=== PATIENT | female | born 1945 | race Caucasian/White ===

== ENCOUNTER 2017-06-02 14:52 | Emergency (ER) | payer MEDICARE, MEDICAID ==
--- NOTE | 2017-06-02 15:12 | ER Document Report ---
ED Respiratory Problem - General Chief Complaint: Cough Stated Complaint: COUGH Time Seen by Provider: 06/02/17 14:58 Information source: Patient Notes: 71-year-old female with past medical history as recorded including dementia who presents today from the [facility] for the cough for 2 weeks. Patient just completed a course of antibiotics. Patient supposedly has had no runny nose, congestion, fever, vomiting, abdominal pain, chest pain, or diarrhea. Patient has a history of myocardial infarction with one stent. No history of congestive heart failure. Patient and family member denies any calf pain or leg swelling. - HPI Patient complains to provider of: Cough Onset: Other - See above Duration: Intermittent episodes Initiating Event: Other - See above Quality of pain: No pain Severity: Mild Pain Level: Denies Context: Other - See above Short of Breath: Mild Cough: Nonproductive Sputum amount: None Associated symptoms: Other - See above Similar symptoms previously: Yes Recently seen / treated by doctor: Yes - Related Data Allergies/Adverse Reactions: No Known Allergies Allergy (Unverified 06/02/17 15:50) Past Medical History - General Information source: Patient - Social History Smoking Status: Unknown if Ever Smoked Cigarette use (# per day): No Chew tobacco use (# tins/day): No Smoking Education Provided: No Frequency of alcohol use: None Family History: Reviewed & Not Pertinent Review of Systems - Review of Systems Constitutional: denies: Fever EENT: denies: Eye discharge, Nose discharge Cardiovascular: denies: Chest pain, Palpitations Respiratory: denies: Hemoptysis Gastrointestinal: denies: Vomiting Genitourinary: denies: Dysuria Musculoskeletal: denies: Leg swelling Skin: Other - no hives. denies: Rash Neurological/Psychological: Other - no slurred speech -: Yes All other systems reviewed and negative Physical Exam - Vital signs Vitals: Temp Pulse BP 97.8 F 84 118/56 L 06/02/17 14:59 06/02/17 14:59 06/02/17 14:59 Interpretation: Normal Notes: Reviewed vital signs and nursing note as charted by RN. CONSTITUTIONAL: Alert and oriented and responds appropriately to questions. Well -appearing; well-nourished HEAD: Normocephalic; atraumatic EYES: PERRL; Conjunctivae clear, sclerae non-icteric ENT: Normal nose; no rhinorrhea; moist mucous membranes; pharynx without lesions noted NECK: Supple without meningismus; non-tender; no cervical lymphadenopathy, no masses CARD: Regular rate and rhythm; no murmurs, no clicks, no rubs, no gallops; symmetric distal pulses RESP: Normal chest excursion without splinting or tachypnea; breath sounds clear and equal bilaterally; rhonchi heard most prominently to the right lower lung field ABD/GI: Normal bowel sounds; non-distended; soft, non-tender BACK: The back appears normal and is non-tender to palpation, there is no CVA tenderness EXT: Normal ROM in all joints; non-tender to palpation; no cyanosis, no effusions, no edema SKIN: Normal color for age and race; warm; dry; good turgor; capillary refill < 2 seconds; no acute lesions noted NEURO: Moves all extremities equally; Motor and sensory function intact PSYCH: The patient's mood and manner are appropriate. Grooming and personal hygiene are appropriate. - Notes Notes: Reviewed vital signs and nursing note as charted by RN. CONSTITUTIONAL: Alert, polite, disoriented at baseline, in no acute distress. Well-appearing; well-nourished HEAD: Normocephalic; atraumatic EYES: PERRL; Conjunctivae clear, sclerae non-icteric CARD: Regular rate and rhythm; no murmurs, no clicks, no rubs, no gallops; symmetric distal pulses RESP: Normal chest excursion without splinting or tachypnea; breath sounds clear and equal bilaterally; obvious wheezing or rales. Scattered rhonchi bilateral ABD/GI: Normal bowel sounds; non-distended; soft, non-tender BACK: The back appears normal and is non-tender to palpation, there is no CVA tenderness EXT: Normal ROM in all joints; non-tender to palpation; no edema SKIN: Normal color for age and race; warm; dry; good turgor; capillary refill < 2 seconds; no acute lesions noted NEURO: Moves all extremities equally; Motor and sensory function intact PSYCH: The patient's mood and manner are appropriate. Grooming and personal hygiene are appropriate. Course - Re-evaluation Re-evalutation: 06/02/17 15:12 Given the history and physical, patient's age, I will obtain basic labs, troponin, EKG, BNP, and an x-ray of the chest. I would like to evaluate for possible resistant pneumonia, congestive heart failure, or other intrathoracic process. I believe PE or aortic dissection to be unlikely. 06/02/17 15:36 EKG shows a heart rate of 89, normal sinus rhythm, left anterior fascicular block, no obvious ST elevation or depression 06/02/17 15:43 X-ray of the chest shows what appears to be a right lower lobe pneumonia. I have researched the patient's transfer summary paperwork and it appears the patient just completed a course of Levaquin. Labs are currently pending. I would discuss the patient's admission with the hospitalist given failed outpatient management. 06/02/17 16:33 Pt will be admitted to the hospitalist service. Hospitalist requested Cefipime and levoquin. - Vital Signs Vital signs: Temp Pulse Resp BP Pulse Ox 97.8 F 84 18 118/56 L 95 06/02/17 14:59 06/02/17 14:59 06/02/17 15:15 06/02/17 14:59 06/02/17 15:15 - Laboratory Result Diagrams: 06/02/17 15:44 06/02/17 15:44 Laboratory results interpreted by me: 06/02/17 06/02/17 15:44 15:44 Hgb 11.7 L Hct 35.4 L RDW 14.2 H Plt Count 495 H Carbon Dioxide 32 H BUN 22 H Glucose 118 H Discharge - Discharge Clinical Impression: Bacterial pneumonia Condition: Fair Disposition: ADMITTED INPATIENT Admitting Provider: Hospitalist Unit Admitted: [facility]
--- NOTE | 2017-06-02 15:33 | RADIOLOGY REPORT (SQ) ---
EXAM DESCRIPTION: CHEST PA/LAT COMPLETED DATE/TIME: 06/02/2017 3:24 pm REASON FOR STUDY: 13Hw; cough COMPARISON: None. EXAM PARAMETERS: NUMBER OF VIEWS: two views TECHNIQUE: Digital Frontal and Lateral radiographic views of the chest acquired. RADIATION DOSE: NA LIMITATIONS: none FINDINGS: LUNGS AND PLEURA: Dense opacification is present in the right lower lobe. MEDIASTINUM AND HILAR STRUCTURES: No masses or contour abnormalities. HEART AND VASCULAR STRUCTURES: Heart normal size. No evidence for failure. BONES: No acute findings. HARDWARE: None in the chest. OTHER: No other significant finding. IMPRESSION: Right lower lobe pneumonia. TECHNICAL DOCUMENTATION: JOB ID: [id number] [employer]- All Rights Reserved
[2017-06-02 15:59] LABS: HEMATOCRIT 35.4 % (36.0-47.0); HEMOGLOBIN 11.7 g/dL (12.0-15.5); HGB HCT DIFFERENCE -0.3; MEAN CORPUSCULAR HEMOGLOBIN 31.2 pg (27.0-33.4); MEAN CORPUSCULAR VOLUME 95 fl (80-97); RED BLOOD COUNT 3.75 10^6/uL (3.72-5.28); RED CELL DISTRIBUTION WIDTH 14.2 % (11.5-14.0); WHITE BLOOD COUNT 9.4 10^3/uL (4.0-10.5)
[2017-06-02 16:16] LABS: ANION GAP 8 (5-19); BLOOD UREA NITROGEN 22 mg/dL (7-20); CALCIUM 8.5 mg/dL (8.4-10.2); CARBON DIOXIDE 32 mmol/L (22-30); CHLORIDE 99 mmol/L (98-107); CREATININE RESULT 0.64 mg/dL (0.52-1.25); GLUCOSE 118 mg/dL (75-110); POTASSIUM 4.2 mmol/L (3.6-5.0); SODIUM 139.1 mmol/L (137-145)
[2017-06-02 16:27] LABS: BAND NEUTROPHILS % (MANUAL) 3 % (3-5); BASOPHILS % (MANUAL) 0 % (0-2); EOSINOPHILS % (MANUAL) 2 % (0-6); LYMPHOCYTES % (MANUAL) 16 % (13-45); TOTAL CELLS COUNTED 100
[2017-06-02 16:29] LABS: ANISOCYTOSIS SLIGHT; OVALOCYTES SLIGHT; POIKILOCYTOSIS SLIGHT; POLYCHROMASIA SLIGHT; TARGET CELLS SLIGHT
[2017-06-02] MEDS ORDERED: CEFEPIME 2 GM/D5W RTU 50 ML IV ONE (16:31)
[2017-06-02] MEDS ORDERED: LEVOFLOXACIN 750 MG/D5W RTU 150 ML IV ONE (16:32)
[2017-06-02 16:34] LABS: TROPONIN I < 0.012 ng/mL
--- NOTE | 2017-06-02 17:27 | PDOC CONSULTATION ---
Consultation Consult Date: 06/02/17 Consult reason:: Pneumonia History of Present Illness Admission Date/PCP: JIM CRUZ Patient complains of: Cough History of Present Illness: ISHA SNYDER is a 71 year old female with past medical history of dementia that is transferred from [facility] for 2 weeks of persistent cough. Patient was treated with Levaquin from 05/27/2017 to 2016. She has no reported fever. I cannot get reliable history from patient secondary to advanced dementia. Her sister is present at the bedside and able to give good history. She also states the patient has had no fever or shortness of breath but just a persistent cough for 2 weeks. Past Medical History Cardiac Medical History: Reports: Hyperlipidema Psychiatric Medical History: Reports: Bipolar Disorder, Dementia Social History Lives with: Longterm Smoking Status: Unknown if Ever Smoked Frequency of Alcohol Use: None Hx Recreational Drug Use: No - Advance Directive Resuscitation Status: Do Not Resuscitate Family History Family History: Reviewed & Not Pertinent Parental Family History Reviewed: Yes Children Family History Reviewed: Yes Sibling(s) Family History Reviewed.: Yes Medication/Allergy Home Medications: Albuterol Sulfate [Ventolin 0.083% Neb 2.5 mg/3 ml Ampul] 1 vial NEB Q6HWA #60 vial 06/02/17 Aspirin [Aspirin 81 mg Chewable Tablet] 81 mg PO DAILY 06/02/17 Atorvastatin Calcium [Lipitor 10 mg Tablet] 10 mg PO QHS 06/02/17 Divalproex Sodium [Depakote ER] 500 mg PO QHS 06/02/17 Fexofenadine HCl [Tina Allergy] 60 mg PO DAILY 06/02/17 Fluticasone Propionate [Flonase Nasal [place] 50 Mcg/[place] 16 gm] 2 sprays NASL Q12 06/02/17 Guaifenesin [Mucinex] 600 mg PO BID #20 tab.er.12h 06/02/17 Levofloxacin [Levaquin 500 mg Tablet] 500 mg PO DAILY #7 tablet 06/02/17 Memantine HCl [Namenda 10 mg Tablet] 10 mg PO Q12 06/02/17 Mirtazapine 7.5 mg PO Q12 06/02/17 Multivit-Min/FA/Lycopene/Lut [Certavite Sr-Antioxidant Tab] 1 tab PO DAILY 06/02 Quetiapine Fumarate [Seroquel 25 mg Tablet] 25 mg PO QHS 06/02/17 Allergies/Adverse Reactions: No Known Allergies Allergy (Unverified 06/02/17 15:50) Review of Systems ROS unobtainable: Due to mental status Physical Exam Vital Signs: Temp Pulse Resp BP Pulse Ox 97.8 F 84 18 118/56 L 95 06/02/17 14:59 06/02/17 14:59 06/02/17 15:15 06/02/17 14:59 06/02/17 15:15 Intake & Output 06/01/17 06/02/17 06/03/17 06:59 06:59 06:59 Weight 59 kg PHYSICAL EXAM: GENERAL: Appears well, no acute distress HEENT: Normocephalic, no scleral icterus, conjunctiva clear, EOEM intact, PERRLA , moist mucous membranes NECK: trachea midline, no thyromegally RESPIRATORY: Faint wheezes in both anterior lung badillo, good air excursion, normal respiratory rate, no intercostal retraction CARDIAC: Regular rate and rhythm, no murmur/cristiano/rub ABDOMEN: Soft, no distension, no tenderness, no guarding, normal bowel sounds, negative Myers sign RECTAL: deferred : deferred EXTREMITIES: No edema, cyanosis, clubbing MUSCULOSKELETAL: No joint swelling or deformity VASCULAR: normal peripheral pulses NEUROLOGIC: Alert, disoriented, normal speech, cranial nerves grossly intact, 5/ 5 strength in all extremities, tactile sensation intact in all extremities SKIN: No rash, no wounds, no worrisome skin lesions Results Laboratory Results: 06/02/17 15:44 06/02/17 15:44 06/02/17 06/02/17 15:44 15:44 WBC 9.4 RBC 3.75 Hgb 11.7 L Hct 35.4 L MCV 95 MCH 31.2 MCHC 33.0 RDW 14.2 H Plt Count 495 H Seg Neutrophils % Not Reportable Lymphocytes % Not Reportable Monocytes % Not Reportable Eosinophils % Not Reportable Basophils % Not Reportable Absolute Neutrophils Not Reportable Absolute Lymphocytes Not Reportable Absolute Monocytes Not Reportable Absolute Eosinophils Not Reportable Absolute Basophils Not Reportable Sodium 139.1 Potassium 4.2 Chloride 99 Carbon Dioxide 32 H Anion Gap 8 BUN 22 H Creatinine 0.64 Est GFR ( Amer) > 60 Est GFR (Non-Af Amer) > 60 Glucose 118 H Calcium 8.5 06/02/17 15:44 Troponin I < 0.012 NT-Pro-B Natriuret Pep 236 Impressions: Chest X-Ray 06/02/17 15:05 IMPRESSION: Right lower lobe pneumonia. Assessment & Plan - Diagnosis (1) Right lower lobe pneumonia Is this a current diagnosis for this admission?: YesPlan: Patient has been on Levaquin from 05/27/2017 at 09/11/2017. She is afebrile and has a normal white blood count on this medication. She has residual cough as a result of pneumonia. I do not think she has failed Levaquin but I will extend the course for 7 more days. Order Mucinex and albuterol nebulizer treatments for symptomatic relief. Patient will need follow-up chest x-ray in 3-4 weeks. (2) Dementia Is this a current diagnosis for this admission?: YesPlan: Return to [facility]term facility for supportive care. (3) Reactive airway disease Is this a current diagnosis for this admission?: YesPlan: Albuterol nebulizer treatments every 6 hours while awake for the next 7 days. - Time Time Spent: Greater than 70 Minutes Anticipated discharge: SNF
[2017-06-02 19:16] VITALS: BP 119/60
--- NOTE | 2017-06-02 22:46 | EKG REPORT ---
SEVERITY:- ABNORMAL ECG - SINUS RHYTHM LEFT ANTERIOR FASCICULAR BLOCK : Confirmed by: Emil Benson 02-Jun-2017 22:46:12
== END 2017-06-02 19:09 ==
LOC: ER 14:52
DX: J15.9 Unspecified bacterial pneumonia (principal); R05 Cough; F03.90 Unspecified dementia, unspecified severity, without behavioral disturbance, psychotic disturbance, mood disturbance, and anxiety
CPT/HCPCS: 93005; 99284; 96365; 96367; 36415; 87040; 85025; 80048; 84484; 83880; 71020; 93010; J1956; J0692

== ENCOUNTER 2019-09-16 10:10 | Day surgery (SDC) | payer MEDICARE, MEDICAID ==
[2019-09-09 09:53] LABS: HEMATOCRIT 40.1 % (36.0-47.0); HEMOGLOBIN 13.3 g/dL (12.0-15.5); MEAN CORPUSCULAR HEMOGLOBIN 30.4 pg (27.0-33.4); MEAN CORPUSCULAR HGB CONC 33.1 g/dL (32.0-36.0); MEAN CORPUSCULAR VOLUME 92 fl (80-97); PLATELET COUNT 190 10^3/uL (150-450); RED BLOOD COUNT 4.37 10^6/uL (3.72-5.28); RED CELL DISTRIBUTION WIDTH 15.5 % (11.5-14.0); WHITE BLOOD COUNT 5.3 10^3/uL (4.0-10.5)
[2019-09-09 10:28] LABS: ANION GAP 6 (5-19); BLOOD UREA NITROGEN 18 mg/dL (7-20); CALCIUM 9.4 mg/dL (8.4-10.2); CARBON DIOXIDE 32 mmol/L (22-30); CHLORIDE 103 mmol/L (98-107); GLUCOSE 88 mg/dL (75-110); POTASSIUM 4.1 mmol/L (3.6-5.0)
--- NOTE | 2019-09-09 12:47 | RADIOLOGY REPORT (SQ) ---
EXAM DESCRIPTION: CHEST PA/LATERAL COMPLETED DATE/TIME: 09/09/2019 12:38 pm REASON FOR STUDY: PRE-OP COMPARISON: 06/02/2017 EXAM PARAMETERS: NUMBER OF VIEWS: two views TECHNIQUE: Digital Frontal and Lateral radiographic views of the chest acquired. RADIATION DOSE: NA LIMITATIONS: none FINDINGS: LUNGS AND PLEURA: Chronic interstitial changes. No infiltrate, effusion, or mass. MEDIASTINUM AND HILAR STRUCTURES: No masses or contour abnormalities. HEART AND VASCULAR STRUCTURES: Heart normal size. No evidence for failure. BONES: No acute findings. HARDWARE: None in the chest. OTHER: No other significant finding. IMPRESSION: Chronic lung changes with no acute cardiopulmonary finding. TECHNICAL DOCUMENTATION: JOB ID: [id number] [employer]- All Rights Reserved Reading location - IP/workstation name: [email or web address]
[~2019-09-16 10:10] MED LIST: ACETAMINOPHEN 1,000 MG/100 ML RTUPB IV PRN; CEFAZOLIN SODIUM 2 GM in DEXTROSE 5%-WATER 100 ML IV PRN; DEXAMETHASONE SOD PHOSPHATE INJ 4 MG/1 ML VIAL ONE; FENTANYL CITRATE INJ/PF 100 MCG/2 ML AMPUL ONE; IBUPROFEN 800 MG in NORMAL SALINE 250 ML IV PRN; LACTATED RINGERS 1000 ML IV PRN; LIDOCAINE 0.5% INJ-PF (5 MG/ML) 50 ML SDV SUBCUT PRN; MIDAZOLAM 2 MG/2 ML INJ ONE; ONDANSETRON HCL INJ/PF 4 MG/2 ML SDV ONE; PROPOFOL INJ 200 MG/20 ML VIAL IV ONE
[2019-09-16] MEDS ORDERED: BUPIVACAINE HCL 0.25 % INJ/PF (2.5 MG/1 ML) 30 ML VIAL ONE (10:47)
[2019-09-16] MEDS ORDERED: ACETAMINOPHEN 325 MG TABLET ONE (11:18)
[2019-09-16] MEDS ORDERED: MORPHINE SULFATE 10 MG/ML INJ IV PRN (12:39)
[2019-09-16] MEDS ORDERED: PROMETHAZINE HCL INJ 25 MG/1 ML VIAL IV PRN ×2 (12:39)
[2019-09-16] MEDS ORDERED: MEPERIDINE HCL/PF INJ 25 MG/1 ML DISP.SYRIN IV PRN (12:39)
[2019-09-16] MEDS ORDERED: DIPHENHYDRAMINE HCL 50 MG/ML VIAL IV PRN (12:39)
[2019-09-16] MEDS ORDERED: FENTANYL CITRATE INJ/PF 100 MCG/2 ML AMPUL IV PRN ×3 (12:39)
[2019-09-16] MEDS ORDERED: SUCCINYLCHOLINE CHLORIDE INJ 200 MG/10 ML VIAL ONE (13:07)
[2019-09-16] MEDS ORDERED: HYDROCODONE/ACETAMINOPHEN 5-325 MG TABLET PO PRN (13:46)
[2019-09-16 15:22] VITALS: BP 131/77
--- NOTE | 2019-09-23 08:42 | Discharge Summary ---
Discharge Summary (SDC) - Discharge Final Diagnosis: breast mass, suspicious for cancer. H/o breast cancer. Date of Surgery: 09/16/19 Discharge Date: 09/16/19 Condition: Stable Forms: ASU Anesthesia D/C Instruction, Discharge POC-Surgical Service Treatment or Instructions: NO ALCOHOL. NO STRENUOUS ACTIVITY. WEAR A SUPPORTIVE BRA 24 HOURS A DAY FOR 2 WEEKS. MAY TAKE BRA OFF FOR SHOWERS. ASSIST PATIENT WITH ARM EXERCISES. MAY SHOWER AFTER 48 HOURS. NO TUB BATHS. REPORT SIGNS OF INFECTION SUCH PUS, FEVER OVER 101. GO TO THE EMERGENCY ROOM FOR DIFFICULTY BREATHING, CHEST PAIN, UNCONTROLLED BLEEDING. REVIEW YOUR DISCHARGE PAPERWORK. KEEP YOUR FOLLOW-UP APPOINTMENT. Referrals: ALAYNA CAT MD [ACTIVE STAFF] - 09/24/19 8:00 am Discharge Diet: As Tolerated Respiratory Treatments at Home: Deep Breathing/Coughing, Incentive Spirometer Discharge Activity: Balance Activity w/Rest, No Lifting Over 10 Pounds, Slowly Increase Activity Home Care Assistance:  Activities Provided by Home Health Agency: Jail Report the Following to Your Physician Immediately: Shortness of Breath, Increase in Pain, Fever over 101 Degrees, Unusual Bleeding, Drainage-Foul Smelling
--- NOTE | 2019-09-23 08:50 | Operative Report ---
Nonrecallable Operative Report DATE OF SURGERY: 09/16/19 PREOPERATIVE DIAGNOSIS: 1. Personal history of breast cancer. 2. Enlarging, suspicious mass of the left breast, in the subareolar area POSTOPERATIVE DIAGNOSIS: Same as above OPERATION: Partial mastectomy on the left, including the nipple areolar complex SURGEON: ALAYNA CAT 1ST MANUFACTURING QUALITY ENGINEER: VALENTINA BECKER ANESTHESIA: GA TISSUE REMOVED OR ALTERED: Partial mastectomy on the left COMPLICATIONS: None apparent ESTIMATED BLOOD LOSS: Minimal PROCEDURE: Indication for the procedure: This is a 74-year-old female with progressive dementia. She has a history of ipsilateral breast cancer. The patient presented with a new, painful, enlarging mass on the left breast. The mass was situated in the immediately subareolar position. After much discussion with the patient's family, they have elected to undergo excision of the mass to assist with pain control and hopefully slow/eliminate the growth of the tumor. Drains/implants: None. Procedure in detail: After informed consent was obtained, the patient was brought to the operating room and laid in the supine position. The area of the left breast was prepped and draped in a normal sterile fashion. An elliptical incision was created around the nipple areolar complex. Dissection was carried through the subcutaneous tissues of the breast using electrocautery. A wedge of tissue was removed, excising the mass with a margin of normal tissue. The mass was removed from the patient, and marked for pathology. Short stitch is superior, long stitch is lateral. Next, the subcutaneous tissues were closed using 3-0 Vicryl suture in simple running fashion. The skin was closed using 4- 0 Vicryl Rapide suture in subcuticular fashion. Dressings were placed, and the procedure was concluded. All sponge, instrument, and needle counts were correct x2. Condition: Stable. Valentina Becker PA-C was scrubbed and present the entirety of the procedure. She assisted with all portions of the procedure including opening of the skin, dissection and removal of the tumor, closure of the breast tissue, closure of the skin.
== END 2019-09-16 15:12 ==
LOC: OROUT 10:10
PROVIDERS: ATTEND Surgery
DX: C50.812 Malignant neoplasm of overlapping sites of left female breast (principal); Z85.3 Personal history of malignant neoplasm of breast; Z79.899 Other long term (current) drug therapy; Z87.891 Personal history of nicotine dependence; I25.9 Chronic ischemic heart disease, unspecified; E78.5 Hyperlipidemia, unspecified; E87.6 Hypokalemia; F03.90 Unspecified dementia, unspecified severity, without behavioral disturbance, psychotic disturbance, mood disturbance, and anxiety; I10 Essential (primary) hypertension; Z79.82 Long term (current) use of aspirin
CPT/HCPCS: 36415; 85027; 80048; 88342 ×2; 88341 ×2; 88307 ×2; 71046; 00400; 19301; A9270; J2250; J0690; J1100; J3010; J0330; J2405; J7060; J7050; J2704; J1741; 400